=== PATIENT | female | born 1975 | race Caucasian/White ===

== ENCOUNTER 2016-10-23 10:09 | Emergency (ER) | payer OTHER ==
[~2016-10-23] VITALS: Ht 152.4 cm; Wt 58.8 kg
[~2016-10-23 10:09] MED LIST: OMEP20CA5 PO; PROM25SU8 PO; TUMS500C PO
[2016-10-23 10:14] VITALS: BP 107/68; PULSE 91; RESP 16; TEMP 98.2; O2SAT 100
--- NOTE | 2016-10-23 10:30 | PD ---
HPI Chief Complaint: Abdominal Pain Time Seen by Provider: 10:21 Travel History International Travel<30 days: No Contact w/Intl Traveler<30days: No Traveled to known affect area: No History of Present Illness HPI This is a 41-year-old female who presents to the emergency department with lower abdominal discomfort described as cramping and bloating, intermittent, moderate severity. She says it seems to be associated with eating. She has a history of lactose intolerance but has been very strict with her diet and it doesn't seem to be helping. She did have some loose stools one week ago which has since resolved. She denies any fevers, chills, nausea or vomiting. She saw a circus agent years back and had no endoscopy but has never had a colonoscopy. PFSH Past Medical History Hx Anticoagulant Therapy: No Diabetes: No Diminished Hearing: No Tetanus Vaccination: Unknown Influenza Vaccination: No ?: Unknown Social History Alcohol Use: Yes (OCCASSIONAL) Tobacco Use: Yes (1 PPD) Substance Use: No Allergies-Medications (Allergen,Severity, Reaction): Coded Allergies: No Known Allergies (Verified , 10/23/16) Reported Meds & Prescriptions Reported Meds & Active Scripts Active No Active Prescriptions or Reported Medications Review of Systems Except as stated in HPI: all other systems reviewed are Neg Physical Exam Narrative GENERAL:Well appearing, no acute distress SKIN: Warm and dry. HEAD: Atraumatic. Normocephalic. EYES: Pupils equal and round. No injection or drainage. ENT: Moist mucous membranes NECK: Trachea midline. CARDIOVASCULAR: Regular rate and rhythm. No murmur appreciated. RESPIRATORY: Clear to auscultation. Breath sounds equal bilaterally. GASTROINTESTINAL: Abdomen soft, non-tender, nondistended. MUSCULOSKELETAL: No obvious deformities. NEUROLOGICAL: Awake and alert. No obvious cranial nerve deficits. Moving all extremities. PSYCHIATRIC: Appropriate mood and affect; insight and judgment normal. Data Data Last Documented VS Vital Signs Date Time Temp Pulse Resp B/P Pulse Ox O2 Delivery O2 Flow Rate FiO2 10/23/16 10:22 16 10/23/16 10:14 98.2 91 107/68 100 Orders Ed Urine Pregnancytest Poc (10/23/16 10:29) Complete Blood Count With Diff (10/23/16 10:29) Comprehensive Metabolic Panel (10/23/16 10:29) Thyroid Stimulating Hormone (10/23/16 10:29) Labs Laboratory Tests Test 10/23/16 10:37 White Blood Count 10.1 TH/MM3 Red Blood Count 4.35 MIL/MM3 Hemoglobin 13.1 GM/DL Hematocrit 39.0 % Mean Corpuscular Volume 89.5 FL Mean Corpuscular Hemoglobin 30.1 PG Mean Corpuscular Hemoglobin 33.7 % Concent Red Cell Distribution Width 13.4 % Platelet Count 340 TH/MM3 Mean Platelet Volume 7.9 FL Neutrophils (%) (Auto) 63.8 % Lymphocytes (%) (Auto) 24.0 % Monocytes (%) (Auto) 6.5 % Eosinophils (%) (Auto) 5.2 % Basophils (%) (Auto) 0.5 % Neutrophils # (Auto) 6.4 TH/MM3 Lymphocytes # (Auto) 2.4 TH/MM3 Monocytes # (Auto) 0.7 TH/MM3 Eosinophils # (Auto) 0.5 TH/MM3 Basophils # (Auto) 0.1 TH/MM3 CBC Comment DIFF FINAL Differential Comment Sodium Level 143 MEQ/L Potassium Level 3.4 MEQ/L Chloride Level 107 MEQ/L Carbon Dioxide Level 26.7 MEQ/L Anion Gap 9 MEQ/L Blood Urea Nitrogen 9 MG/DL Creatinine 0.64 MG/DL Estimat Glomerular Filtration 103 ML/MIN Rate Random Glucose 80 MG/DL Calcium Level 8.1 MG/DL Total Bilirubin 0.3 MG/DL Aspartate Amino Transf 7 U/L (AST/SGOT) Alanine Aminotransferase 16 U/L (ALT/SGPT) Alkaline Phosphatase 43 U/L Total Protein 6.6 GM/DL Albumin 3.5 GM/DL Thyroid Stimulating Hormone 1.120 uIU/ML [address] [place] [address] Medical Decision Making Medical Screen Exam Complete: Yes Emergency Medical Condition: Yes Interpretation(s) Afebrile, no tachycardia, normotensive No leukocytosis Mild hypokalemia TSH is 1.1 Differential Diagnosis Hypothyroidism, colitis, malabsorption, Crohn's disease Narrative Course This is a 41 Year-old female who presents to the emergency department with bloating and abdominal discomfort in the lower abdomen that's been going on for several weeks. Labs are obtained which are reassuring. She is a very benign abdominal exam. I don't think any imaging is warranted. I think the patient would most benefit from gastroenterology evaluation. She'll be discharged on Bentyl. Diagnosis Primary Impression: Abdominal pain Qualified Code: R10.30 - Lower abdominal pain Patient Instructions: General Instructions Additional Instructions: If you develop severe or worsening abdominal pain, fever>100.4, persistent vomiting or inability to eat or drink return to the emergency department immediately. Follow-up with your circus agent in one week if your symptoms are not improved. Med/Other Pt SpecificInfo: Prescription(s) given Scripts Dicyclomine (Bentyl)20 Mg Tab20 Mg PO QID PRN (CRAMPS) #20 TAB Prov:Brenda Rush MD 10/23/16 Disposition: 01 DISCHARGE HOME Condition: Stable Brenda Rush MD Oct 23, 2016 10:30
[2016-10-23 10:45] LABS: AUTOMATED NEUTROPHIL # 6.4 TH/MM3 (1.8-7.7); BASOPHIL # 0.1 TH/MM3 (0-0.2); BASOPHIL % 0.5 % (0.0-2.0); EOSINOPHIL # 0.5 TH/MM3 (0-0.4); EOSINOPHIL % 5.2 % (0.0-4.0); HEMO FLAGS DIFF FINAL; LYMPHOCYTE # 2.4 TH/MM3 (1.0-4.8); MEAN CELL VOLUME 89.5 FL (80.0-100.0); MEAN CORPUSCULAR HEMOGLOBIN 30.1 PG (27.0-34.0); MEAN CORPUSCULAR HGB CONC 33.7 % (32.0-36.0); MONO % 6.5 % (0.0-8.0); NEUT % 63.8 % (16.0-70.0); PLATELET COUNT 340 TH/MM3 (150-450); RED BLOOD COUNT 4.35 MIL/MM3 (4.00-5.30); RED CELL DISTRIBUTION WIDTH 13.4 % (11.6-17.2); WHITE BLOOD COUNT 10.1 TH/MM3 (4.0-11.0)
[2016-10-23 10:55] LABS: CHLORIDE 107 MEQ/L (98-107); POTASSIUM 3.4 MEQ/L (3.5-5.1); SODIUM (NA) 143 MEQ/L (136-145)
[2016-10-23 10:59] LABS: ANION GAP 9 MEQ/L (5-15); BICARBONATE 26.7 MEQ/L (21.0-32.0); BLOOD UREA NITROGEN 9 MG/DL (7-18)
[2016-10-23 11:03] LABS: ALT (GPT) 16 U/L (10-53); AST (GOT) 7 U/L (15-37); GLOMERULAR FILTRATION RATE 103 ML/MIN (>89)
[2016-10-23 11:04] LABS: TOTAL BILIRUBIN ADULT 0.3 MG/DL (0.2-1.0)
[2016-10-23 11:05] LABS: ALKALINE PHOSPHATASE 43 U/L (45-117)
[2016-10-23] MEDS ORDERED: BENT20TA PO (11:28)
== END 2016-10-23 11:36 | disposition home or self-care (01) ==
LOC: PHED 10:09
DX: R10.30 Lower abdominal pain, unspecified (principal); F17.210 Nicotine dependence, cigarettes, uncomplicated; R14.0 Abdominal distension (gaseous); E73.9 Lactose intolerance, unspecified; E87.6 Hypokalemia
CPT/HCPCS: 80053; 84443; 84703; 85025; 99284